=== PATIENT | male | born 1970 | race Caucasian/White ===

== ENCOUNTER 2022-10-29 10:34 | Outpatient (CLI) | payer BC | END 2022-10-29 10:35 | disposition home or self-care (01) | LOC: SCSRAD 10:34 | PROVIDERS: ATTEND Neurological Surgery | DX: M48.061 Spinal stenosis, lumbar region without neurogenic claudication (principal); M47.816 Spondylosis without myelopathy or radiculopathy, lumbar region; M43.16 Spondylolisthesis, lumbar region | CPT/HCPCS: 72120 ==

== ENCOUNTER 2023-03-21 12:01 | Outpatient (CLI) | payer BC ==
[2023-03-21 13:51] LABS: Hematocrit 47.8 % (38.8-50.0); Hemoglobin 17.8 g/dL (13.5-17.5); Mean Corpuscular HGB CONC 37.2 g/dL (32.0-36.0); Mean Corpuscular Hemoglobin 32.7 pg (27.0-33.0); Mean Corpuscular Volume 87.7 fl (81.2-95.1); Platelet Count 213 10x3/uL (150-450); Red Blood Cell (RBC) Count 5.45 10x6/uL (4.32-5.72); White Blood Cell (WBC) Count 6.2 10x3/uL (3.5-10.5)
[2023-03-21 14:11] LABS: PTT 27.7 sec (22.0-33.0); Prothrombin Time 10.9 sec (9.5-12.1)
[2023-03-21 14:28] LABS: Anion Gap 12 mmol/L (10-20); BUN (Urea Nitrogen) 12 mg/dL (8.4-25.7); Calc. Creatinine Clearance 0 mL/min (70-130); Calcium 9.1 mg/dL (7.8-10.44); Carbon Dioxide 28 mmol/L (22-29); Chloride 102 mmol/L (98-107); Estimated GFR 108; Glucose 100 mg/dL (70-105); Potassium 3.3 mmol/L (3.5-5.1); Sodium 139 mmol/L (136-145)
== END 2023-03-21 12:02 | disposition home or self-care (01) ==
LOC: LABBT 12:01
PROVIDERS: ATTEND Neurological Surgery
DX: Z01.818 Encounter for other preprocedural examination (principal); M48.061 Spinal stenosis, lumbar region without neurogenic claudication
CPT/HCPCS: 80048; 85027; 85610; 85730; 93005; 93010

== ENCOUNTER 2023-03-24 06:14 | Day surgery (SDC) | payer BC ==
[2023-03-21 11:17] VITALS: BMI 36.4
[2023-03-24] MEDS ORDERED: EPINEPHrine 1 MG/ML VIAL ONE (06:35)
[2023-03-24] MEDS ORDERED: Bupivacaine PF 0.5% 30 ML VIAL ONE ×2 (06:36→09:21)
[2023-03-24] MEDS ORDERED: Vancomycin 1 GM VIAL ONE (06:36)
[2023-03-24] MEDS ORDERED: Thrombin 5000 UNITS/5 ML VIAL ONE (06:36)
[2023-03-24] MEDS ORDERED: SUGAMMADEX SODIUM 200 MG/2 ML VIAL ONE (06:55)
[2023-03-24] MEDS ORDERED: HYDROmorphone 0.5 MG/0.5 ML SYRINGE ONE (06:56)
[2023-03-24] MEDS ORDERED: Phenylephrine 40 MG/NS 250 ML 250 ML ONE (06:56)
[2023-03-24] MEDS ORDERED: Midazolam HCl 2 mg/2 ml Vial ONE (06:58)
[2023-03-24] MEDS ORDERED: Sodium Chloride 0.9% 100 ML ONE (06:58)
[2023-03-24] MEDS ORDERED: CEFAZOLIN 2 GM VIAL ONE (06:58)
[2023-03-24] MEDS ORDERED: Lidocaine 2% PF 5 ML VIAL ONE (07:03)
[2023-03-24] MEDS ORDERED: PROPOFOL 20 ML ONE ×2 (07:03→07:17)
[2023-03-24] MEDS ORDERED: Fentanyl 250 MCG/5 ML VIAL ONE (07:03)
[2023-03-24] MEDS ORDERED: Rocuronium Bromide 10 MG/ML (10ML VIAL) ONE (07:03)
[2023-03-24] MEDS ORDERED: PHENYLEPHRINE-NS 100 MCG/ML 10 ML SYRINGE ONE (07:32)
[2023-03-24] MEDS ORDERED: CEFAZOLIN 1 GM VIAL ONE (07:33)
[2023-03-24] MEDS ORDERED: Dexamethasone 20 MG/5 ML VIAL ONE (07:52)
[2023-03-24] MEDS ORDERED: Ondansetron PF 4 MG/2 ML Vial ONE (07:52)
[2023-03-24] MEDS ORDERED: Glycopyrrolate 0.2 MG/ML 5 ML SYRINGE ONE (08:32)
[2023-03-24] MEDS ORDERED: HYDROmorphone 2 MG/ML VIAL SLOW IVP PRN (10:27)
[2023-03-24] MEDS ORDERED: Ondansetron HCl/PF 4 MG/2 ML Vial IVP PRN (10:27)
[2023-03-24] MEDS ORDERED: Promethazine HCl 25 MG/ML VIAL IM PRN (10:27)
[2023-03-24] MEDS ORDERED: fentaNYL 50 mcg/mL 1 mL Vial ONE (11:02)
[2023-03-24] MEDS ORDERED: HYDROcodone/Acetaminophen 7.5/325 mg Tablet ONE (12:25)
[2023-03-24] MEDS ORDERED: Tamsulosin HCl 0.4 MG CAP ONE (12:27)
== END 2023-03-24 14:00 | disposition home or self-care (01) ==
LOC: SDC 06:14
PROVIDERS: ATTEND Neurological Surgery
PROC: 01NB0ZZ Release Lumbar Nerve, Open Approach (ICD-10-PCS; principal; 2023-03-24)
DX: M48.062 Spinal stenosis, lumbar region with neurogenic claudication (principal); M47.816 Spondylosis without myelopathy or radiculopathy, lumbar region; G62.9 Polyneuropathy, unspecified; I10 Essential (primary) hypertension; Z90.89 Acquired absence of other organs; Z79.899 Other long term (current) drug therapy
CPT/HCPCS: J0171; J0665; J0690; J1100; J1170; J2001; J2250; J2405; J2704; J3010; J3370; J3490